=== PATIENT | female | born 1990 | race Asian ===

== ENCOUNTER 2017-03-10 14:12 | Outpatient (CLI) | payer OTHER | END 2017-03-10 14:16 | disposition short-term general hospital (02) | LOC: AMB 14:12 | DX: R51 Headache (principal); Y04.2XXA Assault by strike against or bumped into by another person, initial encounter; Y92.89 Other specified places as the place of occurrence of the external cause | CPT/HCPCS: A0425; A0429 ==

== ENCOUNTER 2017-03-10 14:15 | Emergency (ER) | payer OTHER ==
[~2017-03-10] VITALS: Ht 160 cm; Wt 93.4 kg
[2017-03-10 14:24] VITALS: TEMP 97.4
[2017-03-10 16:03] VITALS: BP 125/75
== END 2017-03-10 16:03 | disposition home or self-care (01) ==
LOC: ED 14:15
DX: S00.83XA Contusion of other part of head, initial encounter (principal); Y09 Assault by unspecified means; Y93.89 Activity, other specified; Y92.89 Other specified places as the place of occurrence of the external cause
CPT/HCPCS: 99283

== ENCOUNTER 2017-11-25 17:23 | Emergency (ER) | payer OTHER ==
[~2017-11-25] VITALS: Ht 157.5 cm; Wt 92.5 kg
[2017-11-25 17:25] VITALS: TEMP 97.7
[2017-11-25 18:40] VITALS: BP 120/74
== END 2017-11-25 18:41 | disposition home or self-care (01) ==
LOC: ED 17:23
DX: S40.012A Contusion of left shoulder, initial encounter (principal); Y09 Assault by unspecified means; X50.9XXA Other and unspecified overexertion or strenuous movements or postures, initial encounter
CPT/HCPCS: 96372; 99282; J1885

== ENCOUNTER 2017-12-25 09:33 | Emergency (ER) | payer OTHER ==
[~2017-12-25] VITALS: Ht 157.5 cm; Wt 92.5 kg
[2017-12-25 10:40] LABS: PLATELET COUNT 211 K/uL (152-353)
[2017-12-25 11:00] LABS: POTASSIUM 4.4 mmol/L (3.6-5.2)
[2017-12-25 13:48] VITALS: BP 118/56; TEMP 98
== END 2017-12-25 13:48 | disposition home or self-care (01) ==
LOC: ED 09:33
DX: R07.89 Other chest pain (principal); R11.2 Nausea with vomiting, unspecified; R51 Headache; F15.10 Other stimulant abuse, uncomplicated; F14.10 Cocaine abuse, uncomplicated; F12.10 Cannabis abuse, uncomplicated
CPT/HCPCS: 36415; 80053; 80307; 81000; 84484; 85027; 93005; 96360; 96361; 99283

== ENCOUNTER 2018-05-07 14:16 | Outpatient (CLI) | payer OTHER | END 2018-05-07 14:34 | disposition short-term general hospital (02) | LOC: AMB 14:16 | DX: R10.9 Unspecified abdominal pain (principal); K64.8 Other hemorrhoids | CPT/HCPCS: A0425; A0427 ==

== ENCOUNTER 2018-05-17 13:32 | Emergency (ER) | payer OTHER ==
[~2018-05-17] VITALS: Ht 157.5 cm; Wt 86.2 kg
[2018-05-17 15:55] VITALS: BP 126/72; TEMP 98
== END 2018-05-17 15:55 | disposition home or self-care (01) ==
LOC: ED 13:32
DX: K59.09 Other constipation (principal); Z34.92 Encounter for supervision of normal pregnancy, unspecified, second trimester
CPT/HCPCS: 99282

== ENCOUNTER 2018-10-01 16:21 | Outpatient (CLI) | payer OTHER | END 2018-10-01 16:39 | disposition short-term general hospital (02) | LOC: AMB 16:21 | DX: R10.9 Unspecified abdominal pain (principal); O62.8 Other abnormalities of forces of labor; Z3A.37 37 weeks gestation of pregnancy | CPT/HCPCS: A0425; A0427 ==

== ENCOUNTER 2018-10-14 12:03 | Outpatient (CLI) | payer OTHER | END 2018-10-14 12:21 | disposition short-term general hospital (02) | LOC: AMB 12:03 | DX: O62.9 Abnormality of forces of labor, unspecified (principal); Z3A.39 39 weeks gestation of pregnancy | CPT/HCPCS: A0425; A0427 ==

== ENCOUNTER → 2019-07-05 23:58 | Outpatient (CLI) | payer OTHER | END | disposition home or self-care (01) | LOC: AMB 23:58 | DX: R07.9 Chest pain, unspecified (principal); I10 Essential (primary) hypertension; R00.0 Tachycardia, unspecified; R94.31 Abnormal electrocardiogram [ECG] [EKG] ==

== ENCOUNTER 2019-08-03 18:33 | Emergency (ER) | payer OTHER | END 2019-08-03 19:19 | disposition home or self-care (01) | LOC: ED 18:33 | DX: Z04.71 Encounter for examination and observation following alleged adult physical abuse (principal); Y09 Assault by unspecified means | CPT/HCPCS: 99281 ==